=== PATIENT | male | born 1945 | race Caucasian/White ===

== ENCOUNTER 2018-08-21 21:44 | Observation (INO) | payer MEDICARE, OTHER ==
[~2018-08-21] VITALS: Ht 162.6 cm; Wt 101.8 kg
--- NOTE | 2018-08-21 21:46 | ER Report ---
History and Physical Time Seen By MD: 21:44 HPI/ROS CHIEF COMPLAINT: Shortness of breath HISTORY OF PRESENT ILLNESS: 72-year-old male with a history of congestive heart failure, hypertension, hypothyroid, history of CVA on Eliquis and asthma is traveling from [place] to [place]. He's been getting more short of breath for the last 2 days while traveling by car. Patient is his nebulizers at home. He stopped here in [place] tonight in his hotel became very short of breath and ended up calling EMS. He wears no home O2. His pulse ox on room air was 83% on arrival EMS. He is placed on supplemental O2 and received an albuterol treat ment in route. He is much improved on arrival to the ER. He still has several word dyspnea and increased work of breathing. He is tachycardic in the 120s. His blood pressures elevated 150/109. Patient states he's been on diuretics in the past but is not currently taking them. Patient denies chest pain. He notes increased leg edema. Patient denies fever, chills or productive cough. REVIEW OF SYSTEMS: Respiratory: As above Cardiovascular: No chest pain, no palpitations. Gastrointestinal: No vomiting, no abdominal pain. Musculoskeletal: No back pain. Allergies: Coded Allergies: No Known Drug Allergies (Unverified , 08/21/18) Home Meds Active Scripts Prednisone 10 Mg Tab (PREDNISONE 10 MG TAB) 10 Mg Tablet, 10 MG PO DIRECTED, #30 TAB Take 4 tab daily x 3 days, then 3 tab daily x 3 days, then 2 tab daily x 3 days, then 1 tab daily x 3 days. Prov:PACO GONZALES DO 08/22/18 Reported Medications Glipizide (GLIPIZIDE) 5 Mg Tablet, 5 MG PO DAILY 08/22/18 Calcitriol (CALCITRIOL) 0.5 Mcg Capsule, 0.5 MCG PO DAILY, CAPSULE 08/22/18 Apixaban (ELIQUIS) 5 Mg Tablet, 5 MG PO BID 08/22/18 [Oscal Calcium +D3 ] No Conflict Check, 1 TAB PO 08/21/18 Beclomethasone Dipropionate (Qvar Redihaler) 80 Mcg/Actuation Hfa.aeroba 08/21/18 Finasteride (FINASTERIDE) 5 Mg Tablet, 5 MG PO QDAY 08/21/18 Losartan Potassium (LOSARTAN POTASSIUM) 25 Mg Tablet, 25 MG PO QDAY 08/21/18 Metoprolol Succinate (METOPROLOL SUCCINATE) 25 Mg Tab.er.24h, 1 TAB PO QDAY, TAB 08/21/18 Atorvastatin Calcium (LIPITOR) 40 Mg Tablet, 1 TAB PO QDAY, TAB 08/21/18 Levothyroxine Sodium (LEVOTHYROXINE SODIUM) 100 Mcg Tablet, 125 MCG PO QDAY, TAB 08/21/18 Terazosin Hcl (TERAZOSIN HCL) 5 Mg Capsule, 5 MG PO QHS, CAPSULE 08/21/18 Discontinued Reported Medications Glipizide (GLIPIZIDE) 5 Mg Tablet, 5 MG PO 08/21/18 Apixaban (ELIQUIS) 5 Mg Tablet, 5 MG PO 08/21/18 Calcitriol (CALCITRIOL) 0.5 Mcg Capsule, 0.5 MCG PO, CAPSULE 08/21/18 Reviewed Nurses Notes: Yes Old Medical Records Reviewed: Yes Constitutional Vital Sign - Last 24 Hours 08/21/18 08/21/18 08/21/18 08/21/18 21:44 21:49 21:49 21:50 Temp 98.7 Pulse 117 116 117 Resp 27 17 28 B/P (MAP) 154/109 Pulse Ox 95 O2 Delivery Room Air O2 Flow Rate 2.0 08/21/18 08/21/18 08/21/18 08/21/18 21:50 21:59 22:00 22:03 Pulse 116 Resp 28 B/P (MAP) 154/105 (121) Pulse Ox 96 O2 Delivery Nasal Cannula O2 Flow Rate 3.0 4.0 08/21/18 08/21/18 08/21/18 08/21/18 22:14 22:30 22:44 23:07 Pulse 123 Resp 27 25 B/P (MAP) 131/95 (107) 141/93 (109) Pulse Ox 98 86 08/21/18 08/21/18 08/21/18 08/22/18 23:14 23:30 23:30 00:00 Pulse 121 118 117 Resp 12 17 20 B/P (MAP) 145/75 (98) 145/75 (98) 119/89 (99) Pulse Ox 97 95 94 08/22/18 08/22/18 00:30 00:35 Pulse 114 114 Resp 16 18 B/P (MAP) 141/75 (97) Pulse Ox 94 94 Physical Exam Vital signs stable, mildly elevated blood pressure with systolic of 109, tachypnea, borderline hypoxia on supplemental O2 by nasal cannula., Afebrile General Appearance: The patient is alert, has no immediate need for airway protection and no current signs of toxicity. Increased work of breathing, expiratory audible wheezing HEENT: Pupils equal and round no injection. Oropharynx with mild erythema, no exudate or petechiae Respiratory: Chest is non tender, expiratory wheezing throughout lung francis, 3- 4 word dyspnea Cardiac: regular rate and rhythm, distant heart sounds Gastrointestinal: Abdomen is soft and non tender, no masses, bowel sounds normal. Musculoskeletal: Neck: Neck is supple and non tender. Extremities have full range of motion and are non tender. 2+ edema bilaterally to the upper tibia Skin: No rashes or lesions. DIFFERENTIAL DIAGNOSIS: After history and physical exam differential diagnosis was considered for shortness of breath including but not limited to pulmonary infectious process, COPD, asthma, pulmonary embolus and congestive heart failure. Medical Decision Making Data Points Result Diagram: 08/21/18 2153 08/22/18 0553 Laboratory Hematology Test 08/21/18 21:53 08/22/18 00:05 Red Blood Count 4.43 M/uL (4.00-5.60) Mean Corpuscular Volume 75.7 fL (80.0-96.0) Mean Corpuscular Hemoglobin 24.1 pg (26.0-33.0) Mean Corpuscular Hemoglobin Concent 31.8 g/dL (32.0-36.0) Red Cell Distribution Width 16.9 % (11.5-14.5) Mean Platelet Volume 9.2 fL (7.2-11.1) Neutrophils (%) (Auto) 81.1 % (39.4-72.5) Lymphocytes (%) (Auto) 10.4 % (17.6-49.6) Monocytes (%) (Auto) 7.6 % (4.1-12.4) Eosinophils (%) (Auto) 0.6 % (0.4-6.7) Basophils (%) (Auto) 0.3 % (0.3-1.4) Nucleated RBC Relative Count (auto) 0.0 /100WBC Neutrophils # (Auto) 9.7 K/uL (2.0-7.4) Lymphocytes # (Auto) 1.2 K/uL (1.3-3.6) Monocytes # (Auto) 0.9 K/uL (0.3-1.0) Eosinophils # (Auto) 0.1 K/uL (0.0-0.5) Basophils # (Auto) 0.0 K/uL (0.0-0.1) Nucleated RBC Absolute Count (auto) 0.00 K/uL D-Dimer Quantitative (PE/DVT) 1.19 ug/ml (0-0.50) Lactate 1.6 mmol/L (0.7-2.1) Total Bilirubin 0.5 mg/dl (0.2-1.3) Aspartate Amino Transf (AST/SGOT) 32 U/L (0-35) Alanine Aminotransferase (ALT/SGPT) 28 U/L (0-56) Alkaline Phosphatase 87 U/L (0-126) B-Type Natriuretic Peptide 22 pg/ml (0-100) Total Protein 7.4 g/dl (6.3-8.2) Albumin 4.1 g/dl (3.5-5.0) Urine Color Straw Urine Clarity Clear Urine pH 5.0 pH (4.8-9.5) Urine Specific [place] 1.015 Urine Protein Negative mg/dL (NEGATIVE) Urine Glucose (UA) Negative mg/dL (NEGATIVE) Urine Ketones Negative mg/dL (NEGATIVE) Urine Blood Negative (NEGATIVE) Urine Nitrite Negative (NEGATIVE) Urine Bilirubin Negative (NEGATIVE) Urine Urobilinogen Negative mg/dL (0.2-1.9) Urine Leukocyte Esterase Negative (NEGATIVE) Urine RBC <1 /HPF (0-2/HPF) Urine WBC <1 /HPF (0-5/HPF) Urine Squamous Epithelial Cells Few /LPF (</=FEW) Urine Bacteria Negative /HPF (NONE-FEW) Urine Mucus None /HPF (NONE-FEW) Chemistry Test 08/21/18 21:53 08/22/18 00:05 White Blood Count 12.0 k/uL (4.5-11.0) Red Blood Count 4.43 M/uL (4.00-5.60) Hemoglobin 10.7 g/dL (14.0-18.0) Hematocrit 33.5 % (42.0-52.0) Mean Corpuscular Volume 75.7 fL (80.0-96.0) Mean Corpuscular Hemoglobin 24.1 pg (26.0-33.0) Mean Corpuscular Hemoglobin Concent 31.8 g/dL (32.0-36.0) Red Cell Distribution Width 16.9 % (11.5-14.5) Platelet Count 197 K/uL (150-450) Mean Platelet Volume 9.2 fL (7.2-11.1) Neutrophils (%) (Auto) 81.1 % (39.4-72.5) Lymphocytes (%) (Auto) 10.4 % (17.6-49.6) Monocytes (%) (Auto) 7.6 % (4.1-12.4) Eosinophils (%) (Auto) 0.6 % (0.4-6.7) Basophils (%) (Auto) 0.3 % (0.3-1.4) Nucleated RBC Relative Count (auto) 0.0 /100WBC Neutrophils # (Auto) 9.7 K/uL (2.0-7.4) Lymphocytes # (Auto) 1.2 K/uL (1.3-3.6) Monocytes # (Auto) 0.9 K/uL (0.3-1.0) Eosinophils # (Auto) 0.1 K/uL (0.0-0.5) Basophils # (Auto) 0.0 K/uL (0.0-0.1) Nucleated RBC Absolute Count (auto) 0.00 K/uL D-Dimer Quantitative (PE/DVT) 1.19 ug/ml (0-0.50) Lactate 1.6 mmol/L (0.7-2.1) Total Bilirubin 0.5 mg/dl (0.2-1.3) Aspartate Amino Transf (AST/SGOT) 32 U/L (0-35) Alanine Aminotransferase (ALT/SGPT) 28 U/L (0-56) Alkaline Phosphatase 87 U/L (0-126) B-Type Natriuretic Peptide 22 pg/ml (0-100) Total Protein 7.4 g/dl (6.3-8.2) Albumin 4.1 g/dl (3.5-5.0) Urine Color Straw Urine Clarity Clear Urine pH 5.0 pH (4.8-9.5) Urine Specific [place] 1.015 Urine Protein Negative mg/dL (NEGATIVE) Urine Glucose (UA) Negative mg/dL (NEGATIVE) Urine Ketones Negative mg/dL (NEGATIVE) Urine Blood Negative (NEGATIVE) Urine Nitrite Negative (NEGATIVE) Urine Bilirubin Negative (NEGATIVE) Urine Urobilinogen Negative mg/dL (0.2-1.9) Urine Leukocyte Esterase Negative (NEGATIVE) Urine RBC <1 /HPF (0-2/HPF) Urine WBC <1 /HPF (0-5/HPF) Urine Squamous Epithelial Cells Few /LPF (</=FEW) Urine Bacteria Negative /HPF (NONE-FEW) Urine Mucus None /HPF (NONE-FEW) Coagulation Test 08/21/18 21:53 D-Dimer Quantitative (PE/DVT) 1.19 ug/ml Urinalysis Test 08/22/18 00:05 Urine Color Straw Urine Clarity Clear Urine pH 5.0 pH (4.8-9.5) Urine Specific [place] 1.015 Urine Protein Negative mg/dL (NEGATIVE) Urine Glucose (UA) Negative mg/dL (NEGATIVE) Urine Ketones Negative mg/dL (NEGATIVE) Urine Blood Negative (NEGATIVE) Urine Nitrite Negative (NEGATIVE) Urine Bilirubin Negative (NEGATIVE) Urine Urobilinogen Negative mg/dL (0.2-1.9) Urine Leukocyte Esterase Negative (NEGATIVE) Urine RBC <1 /HPF (0-2/HPF) Urine WBC <1 /HPF (0-5/HPF) Urine Squamous Epithelial Cells Few /LPF (</=FEW) Urine Bacteria Negative /HPF (NONE-FEW) Urine Mucus None /HPF (NONE-FEW) Microbiology Microbiology Date/Time Source Procedure Growth Status 08/21/18 21:53 Blood Peripheral Draw Blood Culture - Preliminary NO GROWTH AFTER 1 DAY, REINCUBATED Resulted EKG/Imaging EKG Interpretation 12 lead EK Rhythm: Sinus tachycardia, rate 119 bpm [place]: normal QRS: normal ST segments: normal, no old EKGs for comparison Imaging X-ray: Single view portable chest x-ray was obtained. I viewed the images myself on the PACS system. My interpretation of the images is:, No obvious infiltrate,? Pulmonary vascular congestion, no effusions. The radiologist interpretation had no clinically significant variation from this interpretation. Results: CT scan of the CTA pulmonary angiogram was obtained. The results of the study are CT CTA CHEST W & W/O CON HISTORY: Dyspnea. Hypoxia. ADDITIONAL HISTORY: None. TECHNIQUE: CTA chest with contrast. 3D coronal slab MIPs and 2D reconstructions in the coronal and sagittal planes were also created. One of the following dose optimization techniques was utilized in the performance of this exam: automated exposure control; adjustment of the mA and/or kv according to patient size; or use of iterative reconstruction technique. Specific details can be referenced in the facility's radiology CT exam operational policy. CONTRAST: 75 cc of Isovue-370 COMPARISON: Chest x-ray 08/21/2018 FINDINGS: Vessels: Mild motion limits examination. No evidence of acute filling defect within the main, lobar or segmental pulmonary arteries. Mild calcification of t he thoracic aorta and coronary arteries. Lower neck: Negative. Heart and pericardium: Negative Mediastinum/hilum/lymph nodes: Negative. Lungs/pleura: Negative. Visualized upper abdomen: Negative. Bones/soft tissues: Negative. Other findings: None significant IMPRESSION: 1. Negative for acute pulmonary embolism. 2. No other acute chest process identified. The study was read by the radiologist. I viewed the images myself on the PACS system. ED Course/Re-evaluation Clinical Indication for ER IV: IV Access ED Course Patient was admitted to an examination room. H&P was done. The differential diagnoses was considered. Patient with severe work of breathing on arrival. Improved after nebulizer by EMS. His room air pulse ox was 83%. When EMS picked him up. Patient was hypertensive on arrival. Patient has history of CHF and reactive airways disease. He's never been a smoker. Patient denies recent infectious symptoms or productive cough. Patient's been traveling in the car for 2 days with increasing shortness of breath. Patient was treated with Solu- Medrol, DuoNeb's, nitroglycerin paste for his elevated blood pressure. His d- dimer was elevated, but he is on [place]. A CTA pulmonary angiogram was performed which was negative for pulmonary embolism. Patient was given Lasix 20 mg IV prior to going for CT. He had 300 mL of urinary output. 08/22/2018 12:27:03 am case discussed with Dr. Tunde Clement hospitalist on- call, who accepts the patient for admission Decision to Disposition Date: Aug 21, 2018 Decision to Disposition Time: 22:59 Depart Departure Latest Vital Signs Vital Signs Date Time Temp Pulse Resp B/P (MAP) Pulse Ox O2 Delivery O2 Flow Rate FiO2 08/22/18 00:35 114 18 94 08/22/18 00:30 141/75 (97) 08/21/18 22:03 4.0 08/21/18 21:50 Nasal Cannula 08/21/18 21:49 98.7 Impression: Primary Impression: Dyspnea Additional Impressions: Congestive heart failure Hypertension History of CVA (cerebrovascular accident) Asthma exacerbation Condition: Improved Disposition: Admitted from ER New Scripts Prednisone 10 Mg Tab (PREDNISONE 10 MG TAB) 10 Mg Tablet 10 MG PO DIRECTED, #30 TAB Take 4 tab daily x 3 days, then 3 tab daily x 3 days, then 2 tab daily x 3 days, then 1 tab daily x 3 days. Prov: PACO GONZALES 08/22/18 Problem Qualifiers Primary Impression: Dyspnea Dyspnea type: unspecified Qualified Codes: R06.00 - Dyspnea, unspecified Additional Impressions: Congestive heart failure Heart failure type: unspecified Heart failure chronicity: acute on chronic Qualified Codes: I50.9 - Heart failure, unspecified Hypertension Hypertension type: essential hypertension Qualified Codes: I10 - Essential (primary) hypertension Asthma exacerbation Asthma severity: mild Asthma persistence: persistent Qualified Codes: J45.31 - Mild persistent asthma with (acute) exacerbation JIM ALEXANDER DO Aug 21, 2018 21:46
[2018-08-21] MEDS ORDERED: NITROGLYCERIN OINT 1 GM PKT TP ONE (21:55)
[2018-08-21] MEDS ORDERED: ALBUTEROL/IPRATROPIUM 3 ML NEB NEB ONE (21:55)
[2018-08-21] MEDS ORDERED: methylPREDNIS SUCC 125 MG/2ML IVP ONE (21:55)
[2018-08-21 22:06] LABS: PLATELET COUNT, AUTOMATED 197 K/uL (150-450)
--- NOTE | 2018-08-21 22:33 | RADIOLOGY IMAGING REPORT ---
FACILITY: [facility] PATIENT NAME: Nury Castillo : 1945 MR: [id number] V: [id number] EXAM DATE: ORDERING PHYSICIAN: JIM ALEXANDER TECHNOLOGIST: Location: [facility] Patient: Nury Castillo : 1945 Visit/Account:[id number] Date of Sevice: 08/21/2018 Portable chest: Indication: Respiratory distress. History of CHF. Technique: A single frontal film was obtained. Comparison: None available. Skeletal and soft tissue structures: There are chronic degenerative changes in the shoulders and spin e. No acute skeletal deformity is clearly identified. Heart and mediastinum: The heart is borderline in size. Lung francis: Hypoexpanded. There are diffuse increased interstitial markings. Mild pulmonary vascular congestion is suspected. No focal consolidation or volume loss is identified. Pleural spaces: No evidence of effusion. Impression: Mild pulmonary vascular congestion is suspected. Report Dictated By: Brice Bright MD at 08/21/2018 10:25 PM Report E-Signed By: Brice Bright MD at 08/21/2018 10:29 PM [id number]
[2018-08-21] MEDS ORDERED: FUROSEMIDE 20 MG/2 ML VIAL IVP ONE (22:40)
[2018-08-21] MEDS ORDERED: CALC0.5C5 PO (22:42)
[2018-08-21] MEDS ORDERED: GLIP-152 PO (22:42)
[2018-08-21] MEDS ORDERED: TERA5CAP59 PO (22:42)
[2018-08-21] MEDS ORDERED: METO25TA23 PO (22:42)
[2018-08-21] MEDS ORDERED: FINA5TAB67 PO (22:42)
[2018-08-21] MEDS ORDERED: ATOR40TA24 PO (22:42)
[2018-08-21] MEDS ORDERED: LOSA25TA57 PO (22:42)
[2018-08-21] MEDS ORDERED: APIX5TAB PO (22:42)
[2018-08-21] MEDS ORDERED: LEVO-3 PO (22:42)
[2018-08-21] MEDS ORDERED: [UNRECOGNIZED DRUG - OTHER] PO (22:42)
[2018-08-21] MEDS ORDERED: BECL10.62 (22:42)
[2018-08-21] MEDS ORDERED: NS(*) 0.9% 50 ML BAG 50 ML ONE (22:51)
[2018-08-21] MEDS ORDERED: IOPAMIDOL 76% 100 ML INFUS BTL 100 ML ONE (22:51)
--- NOTE | 2018-08-21 23:34 | RADIOLOGY IMAGING REPORT ---
FACILITY: [facility] PATIENT NAME: Nury Castillo : 1945 MR: [id number] V: [id number] EXAM DATE: ORDERING PHYSICIAN: JIM ALEXANDER TECHNOLOGIST: Location: [facility] Patient: Nury Catsillo : 1945 Visit/Account:[id number] Date of Sevice: 08/21/2018 CT CTA CHEST W & W/O CON HISTORY: Dyspnea. Hypoxia. ADDITIONAL HISTORY: None. TECHNIQUE: CTA chest with contrast. 3D coronal slab MIPs and 2D reconstructions in the coronal and sagittal planes were also created. One of the following dose optimization techniques was utilized in the performance of this exam: automated exposure control; adjustment of the mA and/or kv according to patient size; or use of iterative reconstruction technique. Specific details can be referenced in [facility]'s radiology CT exam operational policy. CONTRAST: 75 cc of Isovue-370 COMPARISON: Chest x-ray 08/21/2018 FINDINGS: Vessels: Mild motion limits examination. No evidence of acute filling defect within the main, lobar or segmental pulmonary arteries. Mild calcification of the thoracic aorta and coronary arteries. Lower neck: Negative. Heart and pericardium: Negative Mediastinum/hilum/lymph nodes: Negative. Lungs/pleura: Negative. Visualized upper abdomen: Negative. Bones/soft tissues: Negative. Other findings: None significant IMPRESSION: 1. Negative for acute pulmonary embolism. 2. No other acute chest process identified. Report Dictated By: Arun Bishop MD at 08/21/2018 11:24 PM Report E-Signed By: Arun Bishop MD at 08/21/2018 11:30 PM WSN:[id number]
--- NOTE | 2018-08-21 23:48 | EKG ---
FACILITY: [facility] PATIENT NAME: VANDANA PRITCHETT : [id number] MR: [id number]: [id number] EXAM DATE: ORDERING PHYSICIAN: JIM ALEXANDER TECHNOLOGIST: CLYDE Test Reason : DYSPNEA Blood Pressure : / mmHG Vent. Rate : 119 BPM Atrial Rate : 119 BPM P-R Int : 158 ms QRS Dur : 086 ms QT Int : 338 ms P-R-T Axes : 063 -16 045 degrees QTc Int : 475 ms Appears to be sinus tachycardia Left axis Poor R wave progression through precordial leads No acute appearing ST-T findings No previous ECGs available Confirmed by AKI ARANGO ([id number]) on 08/22/2018 12:28:36 AM Referred By: Confirmed By:AKI ARANGO
[2018-08-22] MEDS ORDERED: APIX5TAB PO (01:54)
[2018-08-22] MEDS ORDERED: LEVALBUTEROL 0.63 MG/3 ML NEB NEB PRN (01:55)
[2018-08-22] MEDS ORDERED: FLUSH 10 ML SYR IVP PRN (01:55)
[2018-08-22] MEDS ORDERED: CALCIUM CL 100 MG/1 ML SYR 1,000 MG in NS(*) 0.9% 100 ML BAG 100 ML IVPB ONE (01:55)
[2018-08-22] MEDS ORDERED: ACETAMINOPHEN 325 MG TAB PO PRN (01:55)
[2018-08-22] MEDS ORDERED: CALC0.5C5 PO (01:55)
[2018-08-22] MEDS ORDERED: GLIP-152 PO (01:57)
[2018-08-22 02:00] VITALS: BP 104/85
[2018-08-22] MEDS ORDERED: INSULIN HUM LISPRO 100 UN/ML 3 ML VIAL SUBQ PRN (02:05)
--- NOTE | 2018-08-22 02:13 | History & Physical ---
History of Present Illness Chief Complaint Short of breath History of Present Illness 72yo male who is currently travelling from [place] to [facility]. He has a PMHx significant for CHF, probable intermittent a-fib, CVA, s/p thyroidectomy/ parathyroidectomy, chronic renal failure, type 2 DM. He reports increasing dyspnea while travelling to the [place], [place] area (7200 feet elevation). He denied any chest pain or palpitations. He did notice audible wheezing. No cough or sputum. No orthopnea/PND. No fevers or chills. He was having some muscle cramps occasionally. He was evaluated in the [facility] ER and found to be hypoxic. His d-dimer was elevated. His CT pulmonary angiogram was negative for PE or infiltrate or pulmonary edema. His BNP, troponin were normal. His calcium was low at 5.3. His EKG showed sinus tachycardia and no acute appearing ST-T findings. He was given a dose of IV Lasix in the ER. He was recommended for admission. History Problems: (1) History of CVA (cerebrovascular accident) Status: Chronic (2) Hypertension Status: Chronic (3) Congestive heart failure Status: Chronic (4) History of parathyroidectomy Status: Resolved (5) History of thyroidectomy Status: Resolved (6) Intermittent atrial fibrillation Status: Chronic (7) BPH (benign prostatic hyperplasia) Status: Chronic (8) Asthma Status: Chronic (9) Type 2 diabetes mellitus Status: Chronic (10) Chronic renal failure Status: Chronic Home Meds Reported Medications Glipizide (GLIPIZIDE) 5 Mg Tablet, 5 MG PO DAILY 08/22/18 Calcitriol (CALCITRIOL) 0.5 Mcg Capsule, 0.5 MCG PO DAILY, CAPSULE 08/22/18 Apixaban (ELIQUIS) 5 Mg Tablet, 5 MG PO BID 08/22/18 [Oscal Calcium +D3 ] No Conflict Check, 1 TAB PO 08/21/18 Beclomethasone Dipropionate (Qvar Redihaler) 80 Mcg/Actuation Hfa.aeroba 08/21/18 Finasteride (FINASTERIDE) 5 Mg Tablet, 5 MG PO QDAY 08/21/18 Losartan Potassium (LOSARTAN POTASSIUM) 25 Mg Tablet, 25 MG PO QDAY 08/21/18 Metoprolol Succinate (METOPROLOL SUCCINATE) 25 Mg Tab.er.24h, 1 TAB PO QDAY, TAB 08/21/18 Atorvastatin Calcium (LIPITOR) 40 Mg Tablet, 1 TAB PO QDAY, TAB 08/21/18 Levothyroxine Sodium (LEVOTHYROXINE SODIUM) 100 Mcg Tablet, 125 MCG PO QDAY, TAB 08/21/18 Terazosin Hcl (TERAZOSIN HCL) 5 Mg Capsule, 5 MG PO QHS, CAPSULE 08/21/18 Discontinued Reported Medications Glipizide (GLIPIZIDE) 5 Mg Tablet, 5 MG PO 08/21/18 Apixaban (ELIQUIS) 5 Mg Tablet, 5 MG PO 08/21/18 Calcitriol (CALCITRIOL) 0.5 Mcg Capsule, 0.5 MCG PO, CAPSULE 08/21/18 Allergies: Coded Allergies: No Known Drug Allergies (Unverified , 08/21/18) Patient History: FH: Alzheimers disease MOTHER, FH: diabetes mellitus BROTHER OR SISTER, Other Social/Family Hx He is . Lives in [place]. Hx Smoking: No Exposure to Second Hand Smoke?: Yes Review of Systems Constitutional: No Fever, No Chills Eyes: No Loss of Vision Cardiovascular: No Chest Pain, No Palpitations Respiratory: Shortness of Breath, Wheezing; No Cough Gastrointestinal: No Nausea, No Vomiting, No Constipation, No Hematemesis, No Hematochezia, No Melena, No Abdominal Pain Genitourinary: No Dysuria Exam Vital Signs Vital Signs Date Time Temp Pulse Resp B/P (MAP) Pulse Ox O2 Delivery O2 Flow Rate FiO2 08/22/18 02:00 98.2 107 20 104/85 (91) 93 Nasal Cannula 2.0 General Appearance: Alert, Awake Neuro: No Gross deficits Eyes: PERRLA, Other (sclera anicteric) ENT: Oropharynx Clear Neck: Other (short/thick/healed scar at base of neck) Cardiovascular: Other (Slightly tachycardic regular with distant tones) Respiratory: Other (diminished breath sounds bilaterally with diffuse exp iratory wheezes/no rales noted) Chest: Other (implanted recorder left lower chest) GI: Abd Soft and Non-Tender (obese/BS present) : No CVA Tenderness Lymph: No Adenopathy Extremities: Warm, Perfused, Edema (trace-1+ both lower extremities) Integumentary: Skin Intact without Lesion / Mass Medical Decision Making Data Points Result Diagram: 08/21/18215208/21/182152 Item Value Date Time D-Dimer Quantitative (PE/DVT) 1.19 ug/ml H 08/21/182152 Urine Mucus None /HPF 08/22/184 Urine Bacteria Negative /HPF 08/22/184 Urine Squamous Epithelial Cells Few /LPF 08/22/184 Urine WBC <1 /HPF 08/22/184 Urine RBC <1 /HPF 08/22/184 Urine Leukocyte Esterase Negative 08/22/184 Urine Urobilinogen Negative mg/dL 08/22/184 Urine Nitrite Negative 08/22/184 Urine Bilirubin Negative 08/22/184 Urine Blood Negative 08/22/184 Urine Ketones Negative mg/dL 08/22/184 Urine Glucose (UA) Negative mg/dL 08/22/184 Urine Protein Negative mg/dL 08/22/184 Urine Specific [place] 1.015 08/22/184 Urine pH 5.0 pH 08/22/184 Urine Clarity Clear 08/22/184 Urine Color Straw 08/22/184 Lactate 1.6 mmol/L 08/21/182152 Albumin 4.1 g/dl 08/21/182152 Total Protein 7.4 g/dl 08/21/182152 Troponin I < 0.012 ng/ml 08/21/182152 B-Type Natriuretic Peptide 22 pg/ml 08/21/182152 Alkaline Phosphatase 87 U/L 08/21/182152 Alanine Aminotransferase (ALT/SGPT) 28 U/L 08/21/182152 Aspartate Amino Transf (AST/SGOT) 32 U/L 08/21/182152 Total Bilirubin 0.5 mg/dl 08/21/182152 Calcium Level 5.3 mg/dl *L 08/21/182152 EKG / Imaging EKG Interpretation PATIENT NAME: VANDANA CASTILLO : [id number] MR: [id number] V: [id number] EXAM DATE: ORDERING PHYSICIAN: JIM ALEXANDER TECHNOLOGIST: CLYDE Test Reason : DYSPNEA Blood Pressure : / mmHG Vent. Rate : 119 BPM Atrial Rate : 119 BPM P-R Int : 158 ms QRS Dur : 086 ms QT Int : 338 ms P-R-T Axes : 063 -16 045 degrees QTc Int : 475 ms Appears to be sinus tachycardia Left axis Poor R wave progression through precordial leads No acute appearing ST-T findings No previous ECGs available Confirmed by AKI ARANGO ([id number]) on 08/22/2018 12:28:36 AM Referred By: Confirmed By:AKI ARANGO Imaging PATIENT NAME: Vandana Castillo : 1945 MR: [id number] V: [id number] EXAM DATE: ORDERING PHYSICIAN: JIM ALEXANDER TECHNOLOGIST: Location: [facility] Patient: Vandana Castillo : 1945 Visit/Account:[id number] Date of Sevice: 08/21/2018 Portable chest: Indication: Respiratory distress. History of CHF. Technique: A single frontal film was obtained. Comparison: None available. Skeletal and soft tissue structures: There are chronic degenerative changes in the shoulders and spine. No acute skeletal deformity is clearly identified. Heart and mediastinum: The heart is borderline in size. Lung francis: Hypoexpanded. There are diffuse increased interstitial markings. Mild pulmonary vascular congestion is suspected. No focal consolidation or volume loss is identified. Pleural spaces: No evidence of effusion. Impression: Mild pulmonary vascular congestion is suspected. Report Dictated By: Brice Bright MD at 08/21/2018 10:25 PM Report E-Signed By: Brice Bright MD at 08/21/2018 10:29 PM [id number] PATIENT NAME: Vandana Castillo : 1945 MR: [id number] V: [id number] EXAM DATE: ORDERING PHYSICIAN: JIM ALEXANDER TECHNOLOGIST: Location: [facility] Patient: Vandana Castillo : 1945 Visit/Account:[id number] Date of Sevice: 08/21/2018 CT CTA CHEST W & W/O CON HISTORY: Dyspnea. Hypoxia. ADDITIONAL HISTORY: None. TECHNIQUE: CTA chest with contrast. 3D coronal slab MIPs and 2D reconstructions in the coronal and sagittal planes were also created. One of the following dose optimization techniques was utilized in the performance of this exam: automated exposure control; adjustment of the mA and/or kv according to patient size; or use of iterative reconstruction technique. Specific details can be referenced in the facility's radiology CT exam operational policy. CONTRAST: 75 cc of [id number] COMPARISON: Chest x-ray 08/21/2018 FINDINGS: Vessels: Mild motion limits examination. No evidence of acute filling defect within the main, lobar or segmental pulmonary arteries. Mild calcification of the thoracic aorta and coronary arteries. Lower neck: Negative. Heart and pericardium: Negative Mediastinum/hilum/lymph nodes: Negative. Lungs/pleura: Negative. Visualized upper abdomen: Negative. Bones/soft tissues: Negative. Other findings: None significant IMPRESSION: 1. Negative for acute pulmonary embolism. 2. No other acute chest process identified. Report Dictated By: Arun Bishop MD at 08/21/2018 11:24 PM Report E-Signed By: Arun Bishop MD at 08/21/2018 11:30 PM [id number] Assessment and Plan Problems: (1) Dyspnea Status: Acute Assessment & Plan: May be multifactorial including CHF, asthma, altitude effects. At present, he does not appear to have pulmonary edema, but does have significant wheezing. Will place on nebulized respiratory treatments as well as pulse of steroids. Will give supplemental oxygen as necessary. We also discussed returning to lower altitude. (2) Asthma Status: Chronic Assessment & Plan: Will treat as noted above. (3) Congestive heart failure Status: Chronic Assessment & Plan: His volume status appears fairly well compensated at this time. Will continue his ARB and beta kadeem. Watch closely. (4) Type 2 diabetes mellitus Status: Chronic Assessment & Plan: Will continue his glipizide, ADA diet. Monitor glucoses and use SSI as needed. The steroids will most likely cause elevation of his glucoses. (5) BPH (benign prostatic hyperplasia) Status: Chronic Assessment & Plan: Continue finasteride and terazosin. (6) Intermittent atrial fibrillation Status: Chronic Assessment & Plan: He is currently in a sinus rhythm. Will place on telemetry and monitor. He has been on Eliquis 5mg PO BID in addition to metoprolol. (7) Hypocalcemia Status: Acute Assessment & Plan: Will replace with IV supplement. Will continue his oral calcium and calcitriol. (8) Chronic renal failure Status: Chronic Assessment & Plan: We do not have any old records at this time - will try to get some in the morning. Will watch labs closely. Venous Thromboembolism Antithrombotics Is Pt On Any Antithrombotics?: Yes Exam Sepsis Risk: No Definite Risk Problem Qualifiers (1) Dyspnea: Dyspnea type: unspecified Qualified Codes: R06.00 - Dyspnea, unspecified (2) Congestive heart failure: Heart failure type: unspecified Heart failure chronicity: acute on chronic Qualified Codes: I50.9 - Heart failure, unspecified AKI ARANGO MD Aug 22, 2018 02:13
[2018-08-22] MEDS ORDERED: NS(*) 0.9% 250 ML BAG 250 ML ONE (03:09)
[2018-08-22] MEDS ORDERED: LEVOTHYROXINE SOD 0.125 MG TAB PO SCH (06:00)
[2018-08-22] MEDS ORDERED: LEVALBUTEROL 1.25 MG/3 ML NEB NEB SCH (06:00)
[2018-08-22 06:44] VITALS: BP 152/95
[2018-08-22] MEDS ORDERED: glipiZIDE 5 MG TAB PO SCH (07:30)
[2018-08-22] MEDS ORDERED: CALCIUM CARBONATE 600 MG TAB PO SCH (08:00)
[2018-08-22] MEDS ORDERED: LOSARTAN POTASSIUM 50 MG TAB PO SCH (09:00)
[2018-08-22] MEDS ORDERED: CALCITRIOL 0.5 MCG CAPSULE PO SCH (09:00)
[2018-08-22] MEDS ORDERED: METOPROLOL SUCC XL 25 MG TABCR PO SCH (09:00)
[2018-08-22] MEDS ORDERED: ATORVASTATIN 40 MG TAB PO SCH (09:00)
[2018-08-22] MEDS ORDERED: APIXABAN 2.5 MG TABLET PO SCH (09:00)
[2018-08-22] MEDS ORDERED: FINASTERIDE 5 MG TAB PO SCH (09:00)
[2018-08-22] MEDS ORDERED: methylPREDNIS SUCC 125 MG/2ML IVP SCH (09:00)
[2018-08-22] MEDS ORDERED: PRED-1 PO (09:10)
--- NOTE | 2018-08-22 09:14 | Hospitalist Depart ---
Discharge Summary Reason for Hosp/Final Diag: (1) Dyspnea Status: Acute Hospital Course & Plan: He will discharge on home oxygen. This can be reevaluated once he returns to lower elevation. (2) Asthma Status: Chronic Hospital Course & Plan: He will discharge on a prednisone taper and his usual nebulizer treatments. (3) Congestive heart failure Status: Chronic Hospital Course & Plan: He is on chronic treatment with losartan and metoprolol. (4) Type 2 diabetes mellitus Status: Chronic Hospital Course & Plan: He is on chronic treatment with glipizide. (5) BPH (benign prostatic hyperplasia) Status: Chronic Hospital Course & Plan: He is on chronic treatment with finasteride and terazosin. (6) Intermittent atrial fibrillation Status: Chronic Hospital Course & Plan: He is currently in a sinus rhythm. He is on chronic treatment with Eliquis. (7) Hypocalcemia Status: Acute Hospital Course & Plan: Will replace with IV supplement. Will continue his oral calcium and calcitriol. (8) Chronic renal failure Status: Chronic Hospital Course & Plan: His creatinine has remained stable. Departure Weight (Pounds): 224 Weight (Ounces): 7.0 Result Diagram: 08/21/18 2153 08/22/18 0553 Condition: Improved Discharge: Home, Self Care Discharge Instructions Home Meds Active Scripts Prednisone 10 Mg Tab (PREDNISONE 10 MG TAB) 10 Mg Tablet, 10 MG PO DIRECTED, #30 TAB Take 4 tab daily x 3 days, then 3 tab daily x 3 days, then 2 tab daily x 3 days, then 1 tab daily x 3 days. Prov:PACO GONZALES DO 08/22/18 Reported Medications Glipizide (GLIPIZIDE) 5 Mg Tablet, 5 MG PO DAILY 08/22/18 Calcitriol (CALCITRIOL) 0.5 Mcg Capsule, 0.5 MCG PO DAILY, CAPSULE 08/22/18 Apixaban (ELIQUIS) 5 Mg Tablet, 5 MG PO BID 08/22/18 [Oscal Calcium +D3 ] No Conflict Check, 1 TAB PO 08/21/18 Beclomethasone Dipropionate (Qvar Redihaler) 80 Mcg/Actuation Hfa.aeroba 08/21/18 Finasteride (FINASTERIDE) 5 Mg Tablet, 5 MG PO QDAY 08/21/18 Losartan Potassium (LOSARTAN POTASSIUM) 25 Mg Tablet, 25 MG PO QDAY 08/21/18 Metoprolol Succinate (METOPROLOL SUCCINATE) 25 Mg Tab.er.24h, 1 TAB PO QDAY, TAB 08/21/18 Atorvastatin Calcium (LIPITOR) 40 Mg Tablet, 1 TAB PO QDAY, TAB 08/21/18 Levothyroxine Sodium (LEVOTHYROXINE SODIUM) 100 Mcg Tablet, 125 MCG PO QDAY, TAB 08/21/18 Terazosin Hcl (TERAZOSIN HCL) 5 Mg Capsule, 5 MG PO QHS, CAPSULE 08/21/18 Discontinued Reported Medications Glipizide (GLIPIZIDE) 5 Mg Tablet, 5 MG PO 08/21/18 Apixaban (ELIQUIS) 5 Mg Tablet, 5 MG PO 08/21/18 Calcitriol (CALCITRIOL) 0.5 Mcg Capsule, 0.5 MCG PO, CAPSULE 08/21/18 Diet: Diabetic Activity: As Tolerated Venous Thromboembolism Antithrombotics Is Pt On Any Antithrombotics?: Yes Problem Qualifiers (1) Dyspnea: Dyspnea type: unspecified Qualified Codes: R06.00 - Dyspnea, unspecified (2) Congestive heart failure: Heart failure type: unspecified Heart failure chronicity: acute on chronic Qualified Codes: I50.9 - Heart failure, unspecified PACO GONZALES DO Aug 22, 2018 09:14
[2018-08-22] MEDS ORDERED: TERAZOSIN HCL 1 MG CAP PO SCH (21:00)
== END 2018-08-22 09:10 | disposition home or self-care (01) ==
LOC: ER 21:47 → INTOOBSV 08-22 00:44 → MED 08-22 00:44
PROVIDERS: ADMIT Internal Medicine; ATTEND Internal Medicine
DX: J45.31 Mild persistent asthma with (acute) exacerbation (principal); E11.22 Type 2 diabetes mellitus with diabetic chronic kidney disease; I13.0 Hypertensive heart and chronic kidney disease with heart failure and stage 1 through stage 4 chronic kidney disease, or unspecified chronic kidney disease; N18.9 Chronic kidney disease, unspecified; I50.9 Heart failure, unspecified; N40.0 Benign prostatic hyperplasia without lower urinary tract symptoms; E83.51 Hypocalcemia; Z86.73 Personal history of transient ischemic attack (TIA), and cerebral infarction without residual deficits; Z79.84 Long term (current) use of oral hypoglycemic drugs; Z79.899 Other long term (current) drug therapy
CPT/HCPCS: 36415; 36416; 71045; 71275; 81001; 82948; 83605; 83880; 84484; 85025; 85379; 87040; 93005; 94640; 96372; 96374; 96375; 96376; 99285; A9270; G0378; J1815; J1940; J2930; J3490; J7050; J7620; Q9967; 82040; 82247; 82310; 82374; 82435; 82565; 82947; 84075; 84132; 84155; 84295; 84450; 84460; 84520

== ENCOUNTER → 2018-08-21 | Outpatient (CLI) | payer MEDICARE, OTHER ==
[~2018-08-21] MED LIST: APIX5TAB PO; ATOR40TA24 PO; BECL10.62; CALC0.5C5 PO; FINA5TAB67 PO; GLIP-152 PO; LEVO-3 PO; LOSA25TA57 PO; METO25TA23 PO; PRED-1 PO; TERA5CAP59 PO; [UNRECOGNIZED DRUG - OTHER] PO
== END ==
LOC: AMB 21:16
PROVIDERS: ATTEND Nurse Practitioner
DX: R06.03 Acute respiratory distress (principal); R60.9 Edema, unspecified
CPT/HCPCS: A0425; A0427